=== PATIENT | female | born 1985 ===

== ENCOUNTER 2020-05-15 22:13 | Outpatient (CLI) | payer SELFPAY ==
[2020-05-15 22:32] VITALS: BP 134/70
== END 2020-05-15 23:22 | disposition home or self-care (01) ==
LOC: TRG 22:13 → APU 22:25 → TRG 23:22
PROVIDERS: ATTEND Obstetrics & Gynecology
DX: O42.913 Preterm premature rupture of membranes, unspecified as to length of time between rupture and onset of labor, third trimester (principal); Z3A.40 40 weeks gestation of pregnancy
CPT/HCPCS: 59025